=== PATIENT | male | born 1960 | race Caucasian/White ===

== ENCOUNTER 2018-09-09 09:24 | Emergency (ER) | payer BC ==
[~2018-09-09 09:24] MED LIST: AFRSP NASAL; MULT-40 PO; OMEP20TA25 PO; VENTOLIN PO; ZOVIRAX CREAM
[2018-09-09] MEDS ORDERED: ORPHENADRINE CITRATE 30 MG/ML ML ONE (09:40)
[2018-09-09] MEDS ORDERED: DEXAMETHASONE SOD PHOSPHATE 10MG/ML 1ML VIAL ONE (09:40)
== END 2018-09-09 10:00 | disposition home or self-care (01) ==
LOC: EDH 09:24
DX: M54.5 Low back pain (principal); M62.830 Muscle spasm of back; I10 Essential (primary) hypertension; E78.5 Hyperlipidemia, unspecified; K21.9 Gastro-esophageal reflux disease without esophagitis
CPT/HCPCS: 96372 ×2; 99284; J1100; J2360